=== PATIENT | female | born 1985 | race Two or more races ===

== ENCOUNTER 2023-03-25 23:15 | Emergency (ER) | payer OTHER ==
[~2023-03-25] VITALS: Ht 157.5 cm; Wt 72.6 kg
[2023-03-25] MEDS ORDERED: GABAPENTIN800 M1 PO (23:29)
[2023-03-25] MEDS ORDERED: SOTALOL AF80 MG PO (23:29)
[2023-03-26] MEDS ORDERED: CIPRO500 MG PO (02:05)
== END 2023-03-26 02:19 | disposition home or self-care (01) ==
LOC: ER 23:15
DX: S91.311A Laceration without foreign body, right foot, initial encounter (principal); X58.XXXA Exposure to other specified factors, initial encounter; Y93.89 Activity, other specified; Y92.098 Other place in other non-institutional residence as the place of occurrence of the external cause; Y99.8 Other external cause status; Z88.0 Allergy status to penicillin; Z91.041 Radiographic dye allergy status